=== PATIENT | female | born 1930 | race Caucasian/White ===

== ENCOUNTER 2019-06-16 19:40 | Inpatient (IN) | payer MEDICAID ==
[~2019-06-16] VITALS: Ht 162.6 cm; Wt 73.5 kg
[2019-06-16] VITALS (8 sets, daily range): BP systolic 119–181; BP diastolic 54–69
[2019-06-16] MEDS ORDERED: SODIUM CHLORIDE 0.9% 1,000 ML IV ONE (19:51)
[2019-06-16] MEDS ORDERED: LABETALOL HCL 20MG/4ML CARPUJECT IV ONE (20:00)
[2019-06-16] MEDS ORDERED: LABETALOL 5MG/ML SYR 20 MG/4 ML SYRINGE IV NR (20:15)
[2019-06-16] MEDS ORDERED: NICARDIPINE 40MG/200ML PREMIX 200 ML IV STA (20:28)
[2019-06-16] MEDS ORDERED: MANNITOL 20% (20GM/100ML) BAG 500ML PREMIX IV NR (20:30)
[2019-06-16] MEDS ORDERED: LEVETIRACETAM 500MG PREMIX 100 ML IV ONE (20:30)
[2019-06-16] MEDS ORDERED: DEXAMETHASONE 10 MG/ML VIAL IV ONE (20:30)
[2019-06-16] MEDS ORDERED: MANNITOL 20% 250 ML IV NR (20:34)
[2019-06-16 20:42] LABS: BASOPHILS % 0.6 % (0.0-2.0); HEMATOCRIT. 38.7 % (36.0-48.0); HEMOGLOBIN. 12.8 g/dL (12.0-16.0); LYMPHOCYTES % 43.2 % (20.0-50.0); MEAN CORPUSCULAR HEMOGLOBIN 29.9 pg (28.0-32.0); MEAN CORPUSCULAR VOLUME 90.4 fL (81.0-99.0); MEAN PLATELET VOLUME 8.1 fl (7.4-10.4); MONOCYTES % 6.3 % (2.0-8.0); NEUTROPHILS % 44.9 % (40.0-76.0); PLATELET 259 x1000/uL (130-400); RED BLOOD CELL COUNT 4.29 mill/uL (4.2-5.4); RED CELL DISTRIBUTION WIDTH 15.8 % (11.6-14.6)
[2019-06-16 20:48] LABS: CHLORIDE 105 mEq/L (98-107)
[2019-06-16 20:49] LABS: PARTIAL THROMBOPLASTIN TIME 30.2 sec (23.4-31.0); PROTHROMBIN TIME 10.7 sec (9.6-11.0)
[2019-06-16 20:55] LABS: LDL CHOLESTEROL 104 mg/dL (5-100)
[2019-06-16] MEDS ORDERED: IOHEXOL-350 100 ML BOTTLE ONE (21:03)
[2019-06-16 21:14] LABS: CLARITY URINE CLEAR (CLEAR); COLOR URINE YELLOW (YELLOW); KETONES URINE NEGATIVE (NEGATIVE); LEUKOCYTE ESTERASE URINE NEGATIVE (NEGATIVE); NITRITE URINE NEGATIVE (NEGATIVE); OCCULT BLOOD URINE NEGATIVE (NEGATIVE); PH URINE 8.5 (4.5-8.0); PROTEIN URINE NEGATIVE (NEGATIVE); SPECIFIC GRAVITY URINE 1.018 (1.005-1.030); UROBILINOGEN URINE 0.2 E.U./dL (0.2-1.0)
[2019-06-16] MEDS ORDERED: SODIUM CHLORIDE 0.9% 1000ML BAG (SEPSIS BOLUS) IV ONE (21:30)
[2019-06-16] MEDS ORDERED: LEVOFLOXACIN 750MG PREMIX 150 ML IV ONE (21:30)
[2019-06-16] MEDS ORDERED: ACETAMINOPHEN 325MG TABLET PO PRN (22:15)
[2019-06-16] MEDS ORDERED: NICARDIPINE 50 MG in SODIUM CHLORIDE 0.9% 230 ML IV PRN ×2 (22:15→22:45)
[2019-06-16] MEDS ORDERED: ONDANSETRON HCL 4MG/2ML INJ IV PRN (22:15)
[2019-06-16] MEDS: DEXT 5%/LACTATED RINGERS 1,000 ML IV SCH (23:33)
[2019-06-17] VITALS (94 sets, daily range): BP systolic 105–149; BP diastolic 52–83
[2019-06-17 05:43] LABS: BASOPHILS % 0.3 % (0.0-2.0); EOSINOPHILS % 0.1 % (0.0-5.0); HEMATOCRIT. 39.8 % (36.0-48.0); HEMOGLOBIN. 13.1 g/dL (12.0-16.0); LYMPHOCYTES % 10.8 % (20.0-50.0); MEAN CORPUSCULAR VOLUME 91.2 fL (81.0-99.0); MEAN PLATELET VOLUME 8.8 fl (7.4-10.4); MONOCYTES % 0.6 % (2.0-8.0); NEUTROPHILS % 88.2 % (40.0-76.0); PLATELET 244 x1000/uL (130-400); RED BLOOD CELL COUNT 4.36 mill/uL (4.2-5.4); RED CELL DISTRIBUTION WIDTH 15.9 % (11.6-14.6)
[2019-06-17] MEDS: FAMOTIDINE 20MG/2ML VIAL IV SCH (08:37)
[2019-06-17] MEDS ORDERED: LEVETIRACETAM 500 MG in SODIUM CHLORIDE 0.9% 100 ML IV SCH (09:00)
[2019-06-17] MEDS: MORPHINE SULFATE 2 MG/ML CPJ (NOT FOR IM USE) IV PRN (09:45)
[2019-06-17] MEDS: DEXAMETHASONE 4MG/ML 1ML VIAL IV SCH ×3 (10:29→23:10)
[2019-06-17] MEDS ORDERED: DEXTROSE 50% WATER 50ML SYRINGE IV PRN (11:00)
[2019-06-17] MEDS ORDERED: IPRATROPIUM/ALBUTEROL 0.5-3(2.5)MG/3ML NEB HHN PRN (13:30)
[2019-06-17] MEDS: DEXT 5%/LACTATED RINGERS 1,000 ML IV SCH (15:52)
[2019-06-17] MEDS: NICARDIPINE 100 MG in SODIUM CHLORIDE 0.9% 60 ML IV PRN (15:53)
[2019-06-17] MEDS: BLOOD SUGAR DIAGNOSTIC STRIP TEST SCH ×2 (16:30→21:51)
[2019-06-17] MEDS: INSULIN LISPRO 100 UNITS/ML SUBCUT SCH ×3 (17:00→21:00)
[2019-06-17] MEDS ORDERED: ATORVASTATIN CALCIUM 40MG TABLET PO SCH (21:00)
[2019-06-17] MEDS: LEVETIRACETAM 500MG in SODIUM CHLORIDE 0.9% 100ML IV SCH (23:10)
[2019-06-18] VITALS (54 sets, daily range): BP systolic 110–149; BP diastolic 50–71
[2019-06-18] MEDS: BLOOD SUGAR DIAGNOSTIC STRIP TEST SCH (06:35)
[2019-06-18] MEDS: DEXT 5%/LACTATED RINGERS 1,000 ML IV SCH (06:41)
[2019-06-18] MEDS: DEXAMETHASONE 4MG/ML 1ML VIAL IV SCH ×4 (06:42→23:42)
[2019-06-18] MEDS: NICARDIPINE 100 MG in SODIUM CHLORIDE 0.9% 60 ML IV PRN (06:42)
[2019-06-18] MEDS: INSULIN LISPRO 100 UNITS/ML SUBCUT SCH (06:42)
[2019-06-18] MEDS: FAMOTIDINE 20MG/2ML VIAL IV SCH (09:07)
[2019-06-18] MEDS: LEVETIRACETAM 500MG in SODIUM CHLORIDE 0.9% 100ML IV SCH ×2 (09:07→21:01)
[2019-06-18] MEDS ORDERED: LORAZEPAM 2MG/ML CPJ IV PRN (11:15)
[2019-06-18] MEDS: MORPHINE SULFATE 2 MG/ML CPJ (NOT FOR IM USE) IV PRN (21:02)
[2019-06-18] MEDS ORDERED: ATROPINE SULFATE 1% OPHTH 2ML SL SCH (21:30)
[2019-06-19] VITALS: BP 127/70
[2019-06-19] MEDS: MORPHINE SULFATE 2 MG/ML CPJ (NOT FOR IM USE) IV PRN ×2 (01:58→05:34)
[2019-06-19 04:00] VITALS: BP 133/64
[2019-06-19] MEDS ORDERED: ATROPINE SULFATE 1% OPHTH 2ML BOTHEYE SCH (04:00)
[2019-06-19] MEDS: ATROPINE SULFATE 1% OPHTH 2ML SL SCH ×2 (05:38→11:22)
[2019-06-19] MEDS: DEXAMETHASONE 4MG/ML 1ML VIAL IV SCH ×2 (05:42→11:22)
[2019-06-19 08:00] VITALS: BP 137/62
[2019-06-19] MEDS: LEVETIRACETAM 500MG in SODIUM CHLORIDE 0.9% 100ML IV SCH (09:51)
[2019-06-19 12:00] VITALS: BP_SYST 134; BP_SYST 139; BP_DIAS 59; BP_DIAS 60
[2019-06-19 15:32] VITALS: BP 139/59
[2019-06-19 16:00] VITALS: BP 132/64
== END 2019-06-19 17:17 | disposition hospice, inpatient (51) | DRG 44 ==
LOC: ER 19:40 → MICUSO 20:39 → EDBEDREQTM 20:41 → EDBEDREQ 20:41 → ENRESERV 21:06 → 6EST 06-18 14:00
PROVIDERS: ADMIT Internal Medicine; ATTEND Internal Medicine
DX: I62.9 Nontraumatic intracranial hemorrhage, unspecified (principal); G93.40 Encephalopathy, unspecified; G81.94 Hemiplegia, unspecified affecting left nondominant side; L89.891 Pressure ulcer of other site, stage 1; E11.9 Type 2 diabetes mellitus without complications; F03.90 Unspecified dementia, unspecified severity, without behavioral disturbance, psychotic disturbance, mood disturbance, and anxiety; I16.1 Hypertensive emergency; E78.5 Hyperlipidemia, unspecified; I10 Essential (primary) hypertension; E03.9 Hypothyroidism, unspecified; E78.00 Pure hypercholesterolemia, unspecified; G40.909 Epilepsy, unspecified, not intractable, without status epilepticus; R29.810 Facial weakness; Z51.5 Encounter for palliative care; Z66 Do not resuscitate; Z88.0 Allergy status to penicillin; Z79.899 Other long term (current) drug therapy
CPT/HCPCS: 36415; 70496; 70498; 71045; 80048; 81003; 82962; 83036; 83605; 83721; 84443; 84484; 86850; 86900; 93005; 93970; 99291; J1100; J1815; J1953; J1956; J2270; J3490; J7030; J7050; Q9967